=== PATIENT | female | born 2005 | race Caucasian/White ===

== ENCOUNTER 2025-01-02 11:54 | Outpatient (REF) | payer OTHER, SELFPAY ==
--- OUTSIDE RECORDS SUMMARY | 2025-01-02 10:45 | XMS_ITS | Encounter Summary ---
Author Organization [employer] Address [address] [facility] 7t [place] [address] Care Team Providers Care Health Center Manager Name Role Phone Li Camacho MD Primary Care Provider [phone] Reason for Visit * Reason Comments Establish Care Encounter Details Date Type Department Care Team ([facility] st Contact Info) Description 01/02/2025 10:45 AM EDT Office Visit [facility] MED & PEDS [address] [place], [place] [phone] Li Camacho MD [address] [place] [address] Encounter to establish care (Primary Dx); Encounter for health-related screening; Encounter for immunization; Encounter for vaccination Social History Tobacco Use Types Packs/Day Years Used Date Smoking Tobacco: Never Passive Smoke Exposure: Never Smokeless Tobacco: Never Tobacco Cessation:Counseling Given: Not Answered Alcohol Use Standard Drinks/Week Comments Yes 0 (1 standard drink = 0.6 oz pur e alcohol) Social irregular use Comments No Sex and Gender Information Value Date Recorded Sex Assigned at Female 08/26/2024 4:03 PM EDT Legal Sex Female 4:02 PM EDT Gender Identity Female 01/02/2025 10:34 AM EDT Sexual Orientation Don't know 01/02/2025 10 :34 AM EDT documented as of this encounter Last Filed Vital Signs Vital Sign Reading Time Taken Comments Blood Pressure 122/68 01/02/2025 10:54 AM EDT Pulse 80 01/02/2025 10:54 AM EDT Temperature 36.8 C (98.3 F) 01/02/2025 10:54 AM EDT Respiratory Rate 20 01/02/2025 10:54 AM EDT Oxygen Saturation 98% 01/02/2025 10:54 AM EDT Inhaled Oxygen Concentration - - Weight 57.2 kg (126 lb 3.2 oz) 01/02/2025 10:54 AM EDT Height 154.9 cm (5' 1 ) 01/02/2025 10:54 AM EDT Body Mass Index 23.85 01/02/2025 10:54 AM EDT documented in this encounter Plan of Treatment Upcoming Encounters Date Type Department Care Team (Late st Contact Info) Description 01/13/2025 1:15 PM EST Office Visit [facility] MED & PEDS [address] [place] [address] Li Camacho MD [address] [place] [address] Scheduled Orders Name Type Priority Associated Diagnoses Orde r Schedule Comprehensive Metabolic Panel Lab Routine Encounter for health-related screening Expected: 01/02/2025 (Approximate), Expires: 01/02/2026 HIV-1/2 Antigen and Antibodies, Fourth Generation, with Reflexes Lab Routine Encounter for health-related screening Expected: 01/02/2025 (Approximate), Expires: 01/02/2026 Hepatitis C Antibody with Reflex to HCV, RNA, Quantitative, Real-Time PCR Lab Routine Encounter for health-related screening Expected: 01/02/2025, Expires: 01/02/2026 Lipid Panel, Standard Lab Routine Encounter for health-related screening Expected: 01/02/2025 (Approximate), Expires: 01/02/2026 Chlamydia/N. Gonorrhoeae RNA, TMA, Urogenitial Microbiology Routine Encounter for health-related screening Ordered: 01/02/2025 documented as of this encounter Procedures Procedure Name Priority Date/Time Associated Diagnosis Comments CBC WITH AUTO DIFFERENTIAL Routine 01/02/2025 11:59 AM EDT Encounter for health-related screening documented in this encounter Results * (ABNORMAL) CBC auto differential (01/02/2025 11:59 AM EDT) White Blood Count 7.8 4.8 - 10.8 X10*3/uL [facility] Red Blood Count 4.25 4.20 - 5.50 X10*6/uL [facility] Hemoglobin 11.0(L) 12.0 - 16.0 g/dl [facility] Hematocrit 35.3(L) 37.0 - 47.0 % [facility] Mean Corpuscular Volume 83.1 80.0 - 98.0 fL [facility] Mean Corpuscular Hemoglobin 25.9(L) 27.0 - 33.0 pg [facility] Mean Corpuscular HGB Conc 31.2 31.0 - 35.0 g/dl [facility] Red Cell Distribution Width 15.4 11.0 - 16.0 % [facility] Platelet Count 401(H) 160 - 400 X10*3/uL [facility] Mean Platelet Volume 10.0 9.4 - 12.3 fL [facility] Neutrophils Percent Auto 66.3 45 - 73 % [facility] Imm Gran Pct Auto 0.4 0.0 - 0.4 % [facility] Lymphocytes Percent Auto 26.6 20 - 40 % [facility] Monocytes Percent Auto 5.1 2 - 11 % [facility] Eosinophils Percent Auto 1.3 0 - 4 % [facility] Basophils Percent Auto 0.3 0 - 2 % [facility] NRBC Pct Auto 0.0 0.0 - 0.2 /100WBC [facility] Neutrophils Absolute Auto 5.2 2.0 - 8.3 x10*3/uL [facility] Imm Gran Abs Auto 0.03 0.00 - 0.03 X10*3/uL [facility] Lymphocytes Absolute Auto 2.1 1.2 - 4.9 X10*3/uL [facility] Monocytes Absolute Auto 0.4 0.1 - 1.2 X10*3/uL [facility] Eosinophils Absolute Auto 0.1 0.0 - 0.4 X10*3/uL [facility] Basophils Absolute Auto 0.0 0.0 - 0.2 X10*3/uL [facility] NRBC Abs Auto 0.000 0.0 - 0.012 X10*3/uL [facility] Blood Venous blood specimen / Unknown 01/02/2025 11:59 AM EDT 01/02/2025 2:32 PM EDT us Li Camacho MD LAB BLOOD ORDERABLES Final Re sult [facility] [address] [place] [address] [phone] documented in this encounter Visit Diagnoses Diagnosis Encounter to establish care- Primary Encounter for health-related screening Encounter for immunization Encounter for vaccination documented in this encounter Care Teams Health Center Manager Relationship Specialty Start Date End Date Li Camacho MD [address] [place] [id number] PCP - General Family Medicine 01/02/25 documented as of this encounter
[2025-01-02 14:35] LABS: MANUAL DIFF FLAG NO
[2025-01-02 14:44] LABS: Hematocrit 35.3 % (37.0-47.0); Hemoglobin 11.0 g/dl (12.0-16.0); Imm Gran Abs Auto 0.03 X10*3/uL (0.00-0.03); Imm Gran Pct Auto 0.4 % (0.0-0.4); Lymphocytes Absolute Auto 2.1 X10*3/uL (1.2-4.9); Mean Corpuscular HGB Conc 31.2 g/dl (31.0-35.0); Mean Corpuscular Hemoglobin 25.9 pg (27.0-33.0); Mean Corpuscular Volume 83.1 fL (80.0-98.0); NRBC Abs Auto 0.000 X10*3/uL (0.0-0.012); NRBC Pct Auto 0.0 /100WBC (0.0-0.2); Platelet Count 401 X10*3/uL (160-400); Red Blood Count 4.25 X10*6/uL (4.20-5.50); White Blood Count 7.8 X10*3/uL (4.8-10.8)
[2025-01-02 15:10] LABS: Alanine Aminotransferase 12 U/L (0-31); Albumin Level 4.7 g/dL (3.5-5.0); Alkaline Phosphatase 51 U/L (39-117); Anion Gap 11 (12-20); Aspartate Amino Transferase 22 U/L (5-31); Blood Urea Nitrogen 7 mg/dL (9-16); Calcium 9.5 mg/dL (8.4-10.2); Carbon Dioxide 28 mmol/L (22-29); Chloride 107 mmol/L (96-108); Cholesterol 148 mg/dL (<200); Estimated Glomerular Filt Rate > 60; HDL Cholesterol 50 mg/dL (>40); Potassium 3.8 mmol/L (3.3-5.1); Sodium 142 mmol/L (135-145); Total Protein 7.9 g/dL (6.5-8.0); Triglycerides 37 mg/dL (<150)
--- OUTSIDE RECORDS SUMMARY | 2025-01-02 15:10 | XMS_ITS | Encounter Summary ---
Author Organization [employer] Address [address] [facility] 7 [place] [address] Care Team Providers Care Car Repairer Pullman Name Role Phone Li Camacho MD Primary Care Provider [phone] Encounter Details Date Type Department Care Team (Late st Contact Info) Description 01/01/2025 Telephone [facility] MED & PEDS [address] [place] [address] Li Camacho MD [address] [place] [address] Social History Tobacco Use Types Packs/Day Years Used Date Smoking Tobacco: Never Assessed Comments Unknown Sex and Gender Information Value Date Recorded Sex Assigned at Female 08/26/2024 4:03 PM EDT Legal Sex Female 4:02 PM EDT Gender Identity Female 01/02/2025 10:34 AM EDT Sexual Orientation Don't know 01/02/2025 10 :34 AM EDT documented as of this encounter Plan of Treatment Upcoming Encounters Date Type Department Care Team (Late st Contact Info) Description 01/13/2025 1:15 PM EST Office Visit [facility] MED & PEDS [address] [place] [address] Li Camacho MD [address] [place] [address] documented as of this encounter Visit Diagnoses Not on filedocumented in this encounter Care Teams Car Repairer Pullman Relationship Specialty Start Date End Date Li Camacho MD [address] [place] [address] PCP - General Family Medicine 01/02/25 documented as of this encounter
--- OUTSIDE RECORDS SUMMARY | 2025-01-02 15:11 | XMS_ITS | Clinical Summary ---
Author Organization [employer] Address [address] [facility] 7t [place] [address] Care Team Providers Care Fish Hatchery Man Name Role Phone Li Camacho MD Primary Care Provider [phone] Medications No known medications Active Problems Problem Noted Date Diagnosed Date Encounter to establish care 01/02/2025 Encounters Date Type Department Care Team Description 01/02/2025 10:45 AM EDT Office Visit [facility] MED & PEDS [address] [place] [address] Li Camacho MD Encounter to establish care (Primary Dx); Encounter for health-related screening; Encounter for immunization; Encounter for vaccination 01/02/2025 Telephone [facility] MED & PEDS [address] [place] [address] Li Camacho MD Record Request 01/02/2025 Travel 01/01/2025 Telephone [facility] MED & PEDS [address] [place] [address] Li Camacho MD chart prep 01/01/2025 Telephone [facility] MED & PEDS [address] [place] [address] Li Camacho MD 12/26/2024 Patient Outreach [facility] MED & PEDS [address] [place] [address] Li Camacho MD Pre-visit Planning ([facility] unable to reach [facility] ) 10/15/2024 Telephone [facility] [address] [place], [place] [phone] Reyes Etienne MD from Last 3 Months Immunizations Immunization Administration Dates Next Due HPV 9-Valent 06/19/2017 HPV, Quadrivalent 06/18/2016 Influenza injectable quadriv alent preservative free 02/24/2023,01/05/2022,04/27/2021,02/17 Influenza, seasonal, injecta ble, preservative free 01/02/2025,03/17/2015 Meningococcal MCV4O 06/18/2016 Meningococcal MCV4P ACYW-135 04/27/2021 Pfizer Covid-19 Vaccine 12+ 01/02/2025 TD (adult), 2 Lf tetanus tox oid, preservative free, adsorbed 06/18/2016 Tdap 10/28/2024,04/03/2023,06/18/2016 Family History Medical History Relation Name Comments Heart disease Mother Thyroid cancer Mother Heart disease Paternal Grandfather Heart disease Paternal Grandmother Relation Name Status Comments Mother Paternal Grandfather Paternal Grandmother Social History Tobacco Use Types Packs/Day Years [...] Don't know 01/02/2025 10 :34 AM EDT Last Filed Vital Signs Vital Sign Reading [...] Mass Index 23.85 01/02/2025 10:54 AM EDT Plan of Treatment Upcoming Encounters Date Type Department Care Team (Late st Contact Info) Description 01/13/2025 1:15 PM EST Office Visit [facility] MED & PEDS [address] [place] [address] Li Camacho MD [address] [place] [address] Health Maintenance Due Date Last Done Comments Chlamydia and Gonorrhea Screening 2004 Depression Screening 2004 HIV Screening 2004 SDOH Screening 2004 Disability Screening 2004 Alcohol/Substance Use Screening 2016 Family Planning (PISQ) 2019 Meningococcal B Vaccine (1 of 2 - Standard) 2020 Hepatitis C Screening 2022 Hepatitis B Vaccines (1 of 3 - 19+ 3-dose series) 2023 Tobacco Screening 01/02/2026 01/02/2025 DTaP/Tdap/Td Vaccines (4 - Td or Tdap) 10/28/2034 10/28/2024, 04/03/2023, 06/18/2016, Additional history exists Zoster Vaccines (1 of 2) 2054 RSV Patients and Patients Aged 60 years or older (1 - 1-dose 75+ series) 2079 HPV Vaccines Completed 06/19/2017, 06/18/2016 Meningococcal Vaccine Completed 04/27/2021, 017 COVID-19 Vaccine Completed 01/02/2025, , 09/21/2020, Additional history exists Influenza Vaccine Completed 01/02/2025, , 01/05/2022, Additional history exists HIB Vaccines Aged Out No longer eligi ble based on patient's age to complete this topic Hepatitis A Vaccines Aged Out No long er eligible based on patient's age to complete this topic IPV Vaccines Aged Out No longer eligi ble based on patient's age to complete this topic Pneumococcal Vaccine: Pediatrics (0 to 5 Years) and At-Risk Patients (6 to 49) Years Aged Out No longer eligible based on patient's age to complete this topic RSV under 20 months Aged Out No longe r eligible based on patient's age to complete this topic Rotavirus Vaccines Aged Out No longer eligible based on patient's age to complete this topic Procedures Procedure Name Priority Date/Time Associated Diagnosis Comments CBC WITH AUTO DIFFERENTIAL Routine 01/02/2025 11:59 AM EDT Encounter for health-related screening from Last 3 Months Results * (ABNORMAL) CBC auto differential (01/02/2025 11:59 AM EDT) White Blood Count 7.8 4.8 - 10.8 X10*3/uL [facility] Red Blood Count 4.25 4.20 - 5.50 X10*6/uL [facility] Hemoglobin 11.0(L) 12.0 - 16.0 g/dl [facility] Hematocrit 35.3(L) 37.0 - 47.0 % [facility] Mean Corpuscular Volume 83.1 80.0 - 98.0 fL [facility] Mean Corpuscular Hemoglobin 25.9(L) 27.0 - 33.0 pg [facility] Mean Corpuscular HGB Conc 31.2 31.0 - 35.0 g/dl [facility] Red Cell Distribution Width 15.4 11.0 - 16.0 % [facility] Platelet Count 401(H) 160 - 400 X10*3/uL [facility] Mean Platelet Volume 10.0 9.4 - 12.3 fL [facility] Neutrophils Percent Auto 66.3 45 - 73 % [facility] Imm Gran Pct Auto 0.4 0.0 - 0.4 % [facility] Lymphocytes Percent Auto 26.6 20 - 40 % [facility] Monocytes Percent Auto 5.1 2 - 11 % [facility] Eosinophils Percent Auto 1.3 0 - 4 % [facility] Basophils Percent Auto 0.3 0 - 2 % [facility] NRBC Pct Auto 0.0 0.0 - 0.2 /100WBC [facility] Neutrophils Absolute Auto 5.2 2.0 - 8.3 x10*3/uL [facility] Imm Gran Abs Auto 0.03 0.00 - 0.03 X10*3/uL [facility] Lymphocytes Absolute Auto 2.1 1.2 - 4.9 X10*3/uL [facility] Monocytes Absolute Auto 0.4 0.1 - 1.2 X10*3/uL [facility] Eosinophils Absolute Auto 0.1 0.0 - 0.4 X10*3/uL [facility] Basophils Absolute Auto 0.0 0.0 - 0.2 X10*3/uL [facility] NRBC Abs Auto 0.000 0.0 - 0.012 X10*3/uL [facility] Blood Venous blood specimen / Unknown 01/02/2025 11:59 AM EDT 01/02/2025 2:32 PM EDT us Li Camacho MD LAB BLOOD ORDERABLES Final Re sult [facility] [address] [place] [address] [phone] from Last 3 Months Insurance [facility] 3 Care Teams Fish Hatchery Man Relationship Specialty Start Date End Date Li Camacho MD [address] [place] [address] PCP - General Family Medicine 01/02/25
--- OUTSIDE RECORDS SUMMARY | 2025-01-02 15:11 | XMS_ITS | Encounter Summary ---
Author Organization [employer] Address [address] [facility] 7t [place] [address] Care Team Providers Care Manager Universal Name Role Phone Li Camacho MD Primary Care Provider Reason for Visit * Reason Onset Date Comments Record Request 01/02/2025 Encounter Details Date Type Department Care Team (Late Contact Info) Description 01/02/2025 Telephone [facility] MED & PEDS [address] [place], [place] [phone] Li Camacho MD [address] [place] [address] Record Request Social History Tobacco Use Types Packs/Day Years Used Date Smoking Tobacco: Never Passive Smoke Exposure: Never Smokeless Tobacco: Never Alcohol Use Standard Drinks/Week Comments Yes 0 (1 standard drink = 0.6 oz pur e alcohol) Social irregular use Comments No Sex and Gender Information Value Date Recorded Sex Assigned at Female 08/26/2024 4:03 PM EDT Legal Sex Female 4:02 PM EDT Gender Identity Female 01/02/2025 10:34 AM EDT Sexual Orientation Don't know 01/02/2025 10 :34 AM EDT documented as of this encounter Miscellaneous Notes * Telephone Encounter - Kaye Mccann RN - 01/02/2025 11:50 AM EDT Pt stated at did not have vaccine records in car. Advised will print off [facility] vaccination sheet as pt states has had vaccines in [place]. Printed out report to submit for scanning. Vaccines in epic up to date. documented in this encounter Plan of Treatment Upcoming Encounters Date Type Department Care Team (Late Contact Info) Description 01/13/2025 1:15 PM EST Office Visit [facility] MED & PEDS [address] [place] [address] Li Camacho MD [address] [place] [address] documented as of this encounter Visit Diagnoses Not on filedocumented in this encounter Care Teams Manager Universal Relationship Specialty Start Date End Date Li Camacho MD [address] [place] [address] PCP - General Family Medicine 01/02/25 documented as of this encounter
--- OUTSIDE RECORDS SUMMARY | 2025-01-02 15:11 | XMS_ITS | Encounter Summary ---
Author Organization [employer] Address [address] [facility] 7t [place] [address] Care Team Providers Care Knockout Man Name Role Phone Li Camacho MD Primary Care Provider [phone] Reason for Visit * Reason Onset Date Comments chart prep 01/01/2025 Encounter Details Date Type Department Care Team (Late Contact Info) Description 01/01/2025 Telephone [facility] MED & PEDS [address] [place] [address] Li Camacho MD [address] [place] [address] chart prep Social History Tobacco Use Types Packs/Day Years Used Date Smoking Tobacco: Never Assessed Comments Unknown Sex and Gender Information Value Date Recorded Sex Assigned at Female 08/26/2024 4:03 PM EDT Legal Sex Female 4:02 PM EDT Gender Identity Female 01/02/2025 10:34 AM EDT Sexual Orientation Don't know 01/02/2025 10 :34 AM EDT documented as of this encounter Miscellaneous Notes * Telephone Encounter - Zheng Bull MA - 01/01/2025 2:35 PM EDT Chart Prep Labs: not applicable Images: not applicable Referrals: not applicable Vaccines due: Flu, PCV20, Tdap, Hep B, and MCV4 Screenings: STI screening Overdue care gaps: SBIRT, SDOH, PHQ-9, and Disability screen documented in this encounter Plan of Treatment Upcoming Encounters Date Type Department Care Team (Late Contact Info) Description 01/13/2025 1:15 PM EST Office Visit [facility] MED & PEDS [address] [place] [address] Li Camacho MD [address] [place] [address] documented as of this encounter Visit Diagnoses Not on filedocumented in this encounter Care Teams Knockout Man Relationship Specialty Start Date End Date Li Camacho MD [address] [place] [address] PCP - General Family Medicine 01/02/25 documented as of this encounter
--- OUTSIDE RECORDS SUMMARY | 2025-01-02 15:11 | XMS_ITS | Encounter Summary ---
Author Organization [employer] Address [address] [facility] 7t [place] [address] Care Team Providers Care Enlisted Aircrew/Aerial Observer/Gunner Name Role Phone Li Camacho MD Primary Care Provider [phone] Encounter Details Date Type Department Care Team (Latest Contact Info) Description 01/02/2025 Travel Social History Tobacco Use Types Packs/Day Years [...] Description 01/13/2025 1:15 PM EST Office Visit [facility] MED & PEDS [address] [place] [address] Li Camacho MD [address] [place] [address] documented as of this encounter Visit Diagnoses Not on filedocumented in this encounter Care Teams Enlisted Aircrew/Aerial Observer/Gunner Relationship Specialty Start Date End Date Li Camacho MD [address] [place] [address] PCP - General Family Medicine 01/02/25 documented as of this encounter
[2025-01-03 04:45] LABS: HIV Num 1 0.07 S/CO (0.00-0.99); ~HepC Num1 0.07 S/CO (0.00-0.79); ~Hepatitis C Antibody Nonreactive (Nonreactive)
== END 2025-01-02 11:55 | disposition home or self-care (01) ==
LOC: HO.CHCLDS 11:54
PROVIDERS: Visit Provider Family Medicine
DX: Z13.89 Encounter for screening for other disorder (principal); Z11.4 Encounter for screening for human immunodeficiency virus [HIV]; Z11.59 Encounter for screening for other viral diseases
CPT/HCPCS: 36415; 80053; 80061; 85025; 86803; 87389

== ENCOUNTER 2025-01-13 14:07 | Outpatient (REF) | payer OTHER, SELFPAY ==
[2025-01-13 18:41] LABS: Iron 199 mcg/dL (30-160); Percent Iron Saturation 51 % (15-50); Total Iron Binding Capacity 390 mcg/dL (228-428); Unsaturated Iron Binding 191 ug/dL
[2025-01-13 19:00] LABS: Ferritin 13 ng/mL (10-122)
[2025-01-14 06:50] LABS: HBS Num1 0.70 mIU/mL (0-7.99); HBc Num1 0.06 S/CO (0.00-0.79); HBsAGNum1 0.45 S/CO (0.00-0.99); Hepatitis B Surface Antigen Negative (Negative); ~Hepatitis B Surface Antibody NONREACTIVE (Nonreactive)
[2025-01-14 10:18] LABS: CT PCR Urine NOT DETECTED (Not Detect.); NG PCR Urine NOT DETECTED (Not Detect.)
[2025-01-14 12:09] LABS: Rubeola IgG (Measles) <13.50 AU/mL
== END 2025-01-13 14:08 | disposition home or self-care (01) ==
LOC: HO.CHCLDS 14:07
PROVIDERS: Visit Provider Family Medicine
DX: Z01.84 Encounter for antibody response examination (principal); Z11.59 Encounter for screening for other viral diseases; Z20.2 Contact with and (suspected) exposure to infections with a predominantly sexual mode of transmission; D64.9 Anemia, unspecified
CPT/HCPCS: 36415; 82728; 83540; 86704; 86706; 86735; 86762; 86765; 87340; 87491; 87591